=== PATIENT | male | born 2000 | race Hispanic/Latino ===

== ENCOUNTER 2023-03-18 16:13 | Emergency (ER) | payer MEDICAID ==
[~2023-03-18] VITALS: Ht 170.2 cm; Wt 62.1 kg
[2023-03-18 16:37] LABS: BASOPHILS # (AUTO) 0.04 K/uL (0.00-0.20); BASOPHILS % (AUTO) 0.6 % (0.0-5.0); EOSINOPHILS # (AUTO) 0.04 K/uL (0.00-0.70); EOSINOPHILS % (AUTO) 0.6 % (0.0-8.0); HEMATOCRIT 41.4 % (42-54); LYMPHOCYTES # (AUTO) 2.9 K/uL (1.0-4.8); MEAN CORPUSCULAR HEMOGLOBIN 29.9 pg (27.0-33.0); MEAN CORPUSCULAR HGB CONC 33.3 g/dL (32.0-36.0); MEAN CORPUSCULAR VOLUME 89.8 fL (80-100); MONOCYTES # (AUTO) 0.5 K/uL (0.1-1.0); MONOCYTES % (AUTO) 8.2 % (3.0-13.0); NEUTROPHILS # (AUTO) 2.9 K/uL (1.8-7.7); NEUTROPHILS % (AUTO) 45.6 % (40.0-77.0); PLATELET COUNT (AUTO) 187 K/uL (130-400); RED BLOOD CELL COUNT(AUTO) 4.61 MIL/uL (4.50-6.20); RED CELL DISTRIBUTION WIDTH 11.8 % (11.0-15.5); WHITE BLOOD COUNT (AUTO) 6.4 K/uL (4.8-10.8)
[2023-03-18 16:42] LABS: INR 0.98 (0.85-1.15); PROTHROMBIN TIME 11.4 SEC (9.6-11.6)
[2023-03-18 16:43] LABS: POTASSIUM 3.4 mmol/L (3.5-5.1)
[2023-03-18 16:47] LABS: ALBUMIN 4.1 g/dL (3.5-5.0); BILIRUBIN,TOTAL 0.6 mg/dL (0.2-1.0); MAGNESIUM 1.8 mg/dL (1.80-2.40); TOTAL PROTEIN, SERUM 7.9 g/dL (6.0-8.3)
[2023-03-18 22:24] VITALS: BP 109/65; PULSE 69; RESP 16; O2SAT 99
== END 2023-03-18 22:32 | disposition home or self-care (01) ==
LOC: EDH 16:13
DX: F41.9 Anxiety disorder, unspecified (principal); Z88.0 Allergy status to penicillin; Z88.8 Allergy status to other drugs, medicaments and biological substances
CPT/HCPCS: 36415; 70450; 70553; 71045; 80053; 83735; 84484; 85025; 85378; 85610; 93005

== ENCOUNTER 2023-06-28 07:27 | Emergency (ER) | payer MEDICAID ==
[~2023-06-28] VITALS: Ht 175.3 cm; Wt 58.5 kg
[2023-06-28] MEDS ORDERED: ONDANSETRON 4MG INJ IVP ONE (08:30)
[2023-06-28] MEDS ORDERED: MORPHINE 4 MG SYG IVP ONE (08:30)
[2023-06-28] MEDS ORDERED: LACTATED RINGERS 1000ML 1,000 ML IV ONE (08:30)
[2023-06-28 08:37] LABS: BASOPHILS # (AUTO) 0.03 K/uL (0.00-0.20); BASOPHILS % (AUTO) 0.5 % (0.0-5.0); EOSINOPHILS # (AUTO) 0.02 K/uL (0.00-0.70); EOSINOPHILS % (AUTO) 0.3 % (0.0-8.0); HEMATOCRIT 50.7 % (42-54); IMMATURE GRANULOCYTE ABSOLUTE 0.02 K/uL (0-1); LYMPHOCYTES % (AUTO) 48.9 % (21.0-51.0); MEAN CORPUSCULAR HEMOGLOBIN 30.4 pg (27.0-33.0); MEAN CORPUSCULAR HGB CONC 34.5 g/dL (32.0-36.0); MEAN CORPUSCULAR VOLUME 88.2 fL (80-100); MONOCYTES % (AUTO) 15.3 % (3.0-13.0); NEUTROPHILS # (AUTO) 2.2 K/uL (1.8-7.7); NEUTROPHILS % (AUTO) 34.7 % (40.0-77.0); PLATELET COUNT (AUTO) 151 K/uL (130-400); RED BLOOD CELL COUNT(AUTO) 5.75 MIL/uL (4.50-6.20); RED CELL DISTRIBUTION WIDTH 11.9 % (11.0-15.5); WHITE BLOOD COUNT (AUTO) 6.2 K/uL (4.8-10.8)
[2023-06-28 08:46] LABS: POTASSIUM 3.6 mmol/L (3.5-5.1)
[2023-06-28 08:51] LABS: ALBUMIN 4.2 g/dL (3.5-5.0); BILIRUBIN,TOTAL 0.9 mg/dL (0.2-1.0); TOTAL PROTEIN, SERUM 9.2 g/dL (6.0-8.3)
[2023-06-28 09:03] LABS: SARS-CoV-2, RNA, NAAT NEGATIVE SARS CoV-2 (NEGATIVE)
[2023-06-28 09:12] LABS: INFLUENZA TYPE A Negative For Type A (NEGATIVE); INFLUENZA TYPE B Negative For Type B (NEGATIVE)
[2023-06-28 09:47] LABS: BAND NEUTROPHILS % (MANUAL) 5 % (0-2); EOSINOPHILS % (MANUAL) 1 % (1-6); LYMPHOCYTES % (MANUAL) 44 % (22-44); MONOCYTES % (MANUAL) 11 % (2-9); REACTIVE LYMPHOCYTES 10 % (0-0); SEGMENTED NEUTROPHILS % 29 % (40-70); TOTAL CELLS COUNTED 100
[2023-06-28 09:48] LABS: MAN.DIFF COMMENT-IMPRESSION MANUAL DIFFERENTIAL; PLATELET MORPHOLOGY COMMENT ADEQUATE
[2023-06-28] MEDS ORDERED: IBUP-2070 PO (11:55)
[2023-06-28] MEDS ORDERED: ONDA4TAB10 PO (11:55)
[2023-06-28] MEDS ORDERED: ACET-66 PO (11:55)
[2023-06-28 12:23] LABS: APPEARANCE,URINE CLEAR (CLEAR); BILIRUBIN,URINE NEGATIVE (NEGATIVE); COLOR,URINE YELLOW (YELLOW); GLUCOSE, URINE (UA) NEGATIVE (NEGATIVE); KETONES,URINE 20 mg/dL (NEGATIVE); LEUKOCYTE ESTERASE ,URINE NEGATIVE Leu/uL (NEGATIVE); NITRATE,URINE NEGATIVE (NEGATIVE); OCCULT BLOOD,URINE NEGATIVE (NEGATIVE); PROTEIN,URINE 20 mg/dL (NEGATIVE); UROBILINOGEN,URINE 0.2 mg/dL (0.2-1.0)
[2023-06-28 12:26] LABS: ADD UA MICROSCOPIC YES
[2023-06-28 12:32] LABS: MUCUS,URINE FEW LPF (None Seen); SQUAMOUS EPITHELIAL CELL,UR RARE /HPF (0-2)
[2023-06-28 14:08] VITALS: BP 105/62; PULSE 70; RESP 18; O2SAT 100
== END 2023-06-28 14:11 | disposition home or self-care (01) ==
LOC: EDH 07:27
DX: R10.9 Unspecified abdominal pain (principal); R11.2 Nausea with vomiting, unspecified; R19.7 Diarrhea, unspecified; Z88.0 Allergy status to penicillin; Z88.8 Allergy status to other drugs, medicaments and biological substances; Z89.612 Acquired absence of left leg above knee; Z90.49 Acquired absence of other specified parts of digestive tract; Z91.041 Radiographic dye allergy status; Z20.822 Contact with and (suspected) exposure to COVID-19
CPT/HCPCS: 99285; 74176; 96374; 87635; 96361; 96375; 80053; 83690; 85025; 87088; 87804 ×2; 81001; 36415; C9803; J7120; J2405; J2270

== ENCOUNTER 2025-06-03 18:07 | Inpatient (IN) | payer SELFPAY ==
[~2025-06-03] VITALS: Ht 172.7 cm; Wt 67.9 kg
[~2025-06-03 18:07] MED LIST: ACET-66 PO; IBUP-1492 PO; ONDA-243 PO
--- NOTE | 2025-06-03 18:34 | ERN ---
ED Note History of Present Illness Stated Complaint: MULTIPLE COMPLAINT Chief Complaint: Multiple Complaints Time Seen by MD: 18:26 Dictation: PATIENT IS A 25-YEAR-OLD MALE COMING IN TODAY WITH COMPLAINTS OF GOING TO WORK AT 14:40 THIS AFTERNOON WHEN HE HAD A SUDDEN ONSET OF EPIGASTRIC PAIN AND BILATERAL UPPER QUADRANT PAIN CHEST PAIN AND BODY PAIN. HE SAID HE HAD NAUSEA VOMITING X1. HE STATES IT LASTED FOR A LITTLE WHILE THEN WENT AWAY. HE STATES HE WENT HOME TO LAID DOWN TO SEE IF IT WOULD FEEL BETTER. HE DENIES ANY CHRONIC MEDICAL CONDITIONS NO CHEST PAIN NO BACK PAIN. STATES HE DOES NO DRUGS. STATES HE HAS GONE TO THE HOSPITAL IN THE PAST AT [facility] FOR THE SAME COMPLAINTS. Allergies: Coded Allergies: piperacillin (Unverified Allergy, Mild, RASH, 12/09/22) tazobactam (Unverified Allergy, Mild, RASH, 12/09/22) iodine (Unverified Allergy, Unknown, 12/09/22) promethazine (Unverified Allergy, Unknown, 12/09/22) Uncoded Allergies: PLATLETS (Allergy, Unknown, 12/09/22) Home Meds Active Scripts Ibuprofen (Ibuprofen) 600 Mg Tablet, 600 MG PO Q6H PRN for PAIN, #20 TAB Prov:BENNETT BROUSSARD MD 06/28/23 Acetaminophen (Acetaminophen) 500 Mg Tablet, 500 MG PO Q6HPRN PRN for PAIN, #20 TAB Prov:BENNETT BROUSSARD MD 06/28/23 Ondansetron (Ondansetron Odt) 4 Mg Tab.rapdis, 4 MG PO Q6HPRN PRN for nausea, #12 TAB 0 Refills Prov:BENNETT BROUSSARD MD 06/28/23 Past Medical History Past Medical History: Other Additional Past Medical Hx: OSTEOSARCOMA Surgical History: Other Surgical History Other: LEFT LEG CA REMOVAL Social History: Negative, Lives with family RN Note Reviewed/Agreed w/PFSH: Yes Review of System Dictation CONSTITUTIONAL: NEGATIVE EXCEPT FOR HPI GENERALIZED BODY WEAKNESS HEAD/FACE: NEGATIVE EXCEPT FOR HPI EENT: NEGATIVE EXCEPT FOR HPI RESPIRATORY: NEGATIVE EXCEPT FOR HPI GASTROINTESTINAL/ABDOMINAL: NEGATIVE EXCEPT FOR HPI NAUSEA VOMITING WITH DIFFUSE UPPER ABDOMINAL PAIN GENITOURINARY: NEGATIVE EXCEPT FOR HPI MUSCULOSKELETAL: NEGATIVE EXCEPT FOR HPI MALAISE INTEGUMENTARY: NEGATIVE EXCEPT FOR HPI NEUROLOGICAL/PSYCH: NEGATIVE EXCEPT FOR HPI HEMATOLOGIC/LYMPHATIC: NEGATIVE EXCEPT FOR HPI ALL SYSTEMS NEGATIVE, EXCEPT NOTED ABOVE. 13 POINT REVIEW OF SYSTEMS ASSESSED AND ALL NEGATIVE EXCEPT FOR ABOVE. Initial Vital Sign VS Vital Signs Date Time Temp Pulse Resp B/P (MAP) Pulse Ox O2 Delivery O2 Flow Rate FiO2 06/03/25 18:19 97.5 115 18 121/71 98 Room Air 0 Physical Exam Dictation VITAL SIGNS REVIEWED GENERAL APPEARANCE: ALERT, ORIENTED X 3, NO ACUTE DISTRESS, WELL DEVELOPED, NOURISHED. HEAD AND FACE: NON-TRAUMATIC. EYES: PERRL, PINK CONJUNCTIVAS, EYELID NO TRAUMA, ANTERIOR CHAMBER WITH ARCUS SENILIS. EARS: PINNAS INTACT AND NO SIGNS OF TRAUMA OR ERYTHEMA EAR CANALS CLEAR AND NO DISCHARGE TM NO ERYTHEMA NOSE: NO DISCHARGE, NO BLEEDING. OROPHARYNX: MOUTH NORMAL, TONGUE PINK, PHARYNX CLEAR,NO ERYTHEMA, TONSILS NO EXUDATES, NO ABSCESSES NOTED, MUCOUS MEMBRANE MOIST NECK: SUPPLE, NON-TENDER, NO THYROMEGALY, NO MASSES, NO JVD, NO BRUITS BREAST:DEFERRED CHEST:NO TENDERNESS, NO CREPITUS, NO PARADOXICAL MOVEMENT, NO RETRACTIONS LUNGS:CLEAR, WELL-VENTILATED, SYMMETRIC, NO RALES, NO WHEEZING, NO RHONCHI, NO STRIDOR, GOOD BREATH SOUNDS BILATERALLY HEART: REGULAR RATE, REGULAR RHYTHM, NO MURMUR, NO GALLOPS VASCULAR: NO PERIPHERAL EDEMA, ABDOMEN: SOFT, POSITIVE BOWEL SOUNDS, NONDISTENDED, NO GUARDING, NONTENDER, NO REBOUND, NO MASSES NO HEPATOMEGALY, NO SPLENOMEGALY, NO NAPIER'S SIGN, NO HERNIAS. RECTAL: DEFERRED GENITAL: DEFERRED NEUROLOGICAL: NORMAL SPEECH, MOTOR FUNCTION INTACT, SENSORY FUNCTION INTACT MUSCULOSKELETAL: NECK NONTENDER, FULL RANGE OF MOTION, BACK NONTENDER, FULL RANGE OF MOTION, EXTREMITIES: ROTATION PLASTY OF THE LEFT LEG SKIN INTACT NO ERYTHEMA NO BREAKDOWN SKIN: COLOR PINK, DRY, NO TURGOR, NO RASH, NO LACERATIONS, NO ABRASIONS, NO CONTUSIONS. LYMPHATIC: DEFERRED Results (Laboratory/Radiology) Laboratory/Radiology Laboratory Tests Test 06/03/25 18:57 06/03/25 20:38 White Blood Count 16.3 K/uL (4.8-10.8) H Red Blood Count 5.15 MIL/uL (4.50-6.20) Hemoglobin 15.4 g/dL (14.0-18.0) Hematocrit 46.7 % (42-54) Mean Corpuscular Volume 90.7 fL (79-99) Mean Corpuscular Hemoglobin 29.9 pg (27.0-33.0) Mean Corpuscular Hemoglobin Concent 33.0 g/dL (32.0-36.0) Red Cell Distribution Width 12.0 % (11.0-15.5) Platelet Count 224 K/uL (130-400) Mean Platelet Volume 10.9 fL (7.5-10.5) H Immature Granulocyte % (Auto) 0.4 % (0-1) Neutrophils (%) (Auto) 86.4 % (40.0-77.0) H Lymphocytes (%) (Auto) 7.2 % (21.0-51.0) L Monocytes (%) (Auto) 5.6 % (3.0-13.0) Eosinophils (%) (Auto) 0.2 % (0.0-8.0) Basophils (%) (Auto) 0.2 % (0.0-5.0) Neutrophils # (Auto) 14.1 K/uL (1.8-7.7) H Lymphocytes # (Auto) 1.2 K/uL (1.0-4.8) Monocytes # (Auto) 0.9 K/uL (0.1-1.0) Eosinophils # (Auto) 0.04 K/uL (0.00-0.70) Basophils # (Auto) 0.04 K/uL (0.00-0.20) Absolute Immature Granulocyte (auto 0.06 K/uL (0-1) Nucleated Red Blood Cells 0.0 % (0.0-0.19) Sodium Level 137 mmol/L (136-145) Potassium Level 3.9 mmol/L (3.5-5.1) Chloride Level 99 mmol/L (101-111) L Carbon Dioxide Level 30 mmol/L (21-32) Blood Urea Nitrogen 14 mg/dL (7-18) Creatinine 0.7 mg/dL (0.5-1.3) Glomerular Filtration Rate Calc 133 mL/min (>90) Random Glucose 106 mg/dL (70-105) H Lactic Acid Level 1.8 mmol/L (0.8-2.5) Total Calcium 9.0 mg/dL (8.5-10.1) Total Creatine Kinase 84 U/L (21-232) # Troponin I High Sensitivity < 4 ng/L (4-75) L Lipase 102 U/L (16-77) H Urine Color LIGHT-YELLOW (YELLOW) Urine Appearance CLEAR (CLEAR) Urine pH 7.5 (5.0-8.0) Urine Specific [place] 1.024 (1.001-1.031) Urine Protein NEGATIVE mg/dL (NEGATIVE) Urine Glucose (UA) NEGATIVE mg/dL (NEGATIVE) Urine Ketones NEGATIVE mg/dL (NEGATIVE) Urine Occult Blood NEGATIVE (NEGATIVE) Urine Nitrate NEGATIVE (NEGATIVE) Urine Bilirubin NEGATIVE mg/dL (NEGATIVE) Urine Urobilinogen 0.2 mg/dL (0.2-1.0) Urine Leukocyte Esterase NEGATIVE Leila/uL Urine Opiates Screen NEGATIVE (NEGATIVE) Urine Barbiturates Screen NEGATIVE (NEGATIVE) Urine Phencyclidine Screen NEGATIVE (NEGATIVE) Urine Amphetamines Screen NEGATIVE (NEGATIVE) Urine Benzodiazepines Screen NEGATIVE (NEGATIVE) Urine Cocaine Screen NEGATIVE (NEGATIVE) Urine Marijuana (THC) Screen NEGATIVE (NEGATIVE) Labs Reviewed?: Yes EKG Comment: Test Date: 2025-06-03 Test Time: 18:51:26 Pat Name: CRISTAL MACK Department: [facility] Room: 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 ED Course ED Course Orders Procedure Category Date Status Time Drug Screen Urine LAB 06/03/25 Complete 18:32 Cbc With Differential LAB 06/03/25 In Process 18:32 Troponin I High LAB 06/03/25 Complete Sensitivity 18:32 Urinalysis Profile LAB 06/03/25 Complete 18:32 12 Lead Ekg Tracing- EKG 06/03/25 Complete Technical 18:32 Blood Cult KELSEY 06/03/25 Logged 18:57 Lactic Acid LAB 06/03/25 Complete 18:57 Creatine Kinase, Total LAB 06/03/25 Complete 18:57 Basic Metabolic Panel LAB 06/03/25 Complete 18:57 Lipase LAB 06/03/25 Complete 18:57 Chest 1vw RAD 06/03/25 Resulted 19:30 0.9%Nacl 1000ml (Ns PHA 06/03/25 Logged 1000ml) 21:30 Morphine 2mg Syg PHA 06/03/25 Logged (Morphine 2mg Syg) 21:30 Ondansetron 4mg Inj PHA 06/03/25 Logged (Zofran 4mg Inj) 21:30 Edm Admit Bridge Order ADM 06/03/25 Verified 21:28 Current Medications Medications (Trade) Dose Ordered Sig/[place] Route PRN Reason Start Time Stop Time Status Last Admin Dose Admin Morphine Sulfate (morPHINE 2MG SYG) 2 mg ONCE ONCE IVP 06/03/25 21:30 06/03/25 21:31 UNV Ondansetron HCl (zoFRAN 4MG INJ) 4 mg ONCE ONCE IVP 06/03/25 21:30 06/03/25 21:31 UNV Sodium Chloride 1,000 ml @ 0 mls/hr ONCE ONCE IV 06/03/25 21:30 06/03/25 21:31 UNV Vital Signs Date Time Temp Pulse Resp B/P (MAP) Pulse Ox O2 Delivery O2 Flow Rate FiO2 06/03/25 18:19 97.5 115 18 121/71 98 Room Air 0 2130 REPORT GIVEN TO [facility] HOSPITALIST REGARDING TACHYCARDIA LEUKOCYTOSIS AND ELEVATED LIPASE. HE IS AWARE PATIENT HAS A HISTORY OF OSTEOSARCOMA AND SEPSIS. 1 L NORMAL SALINE AND MORPHINE GIVEN FOR GENERALIZED PAIN HEART Score Response (Comments) Value History: Low suspicion (0) 0 EKG: Normal 0 Age: < 45yrs (0) 0 Risk Factors: No known risk factors (0) 0 Initial Troponin: Normal limit (0) 0 Total 0 Medical Decision Making MDM MDM: DIFFERENTIAL DIAGNOSIS: ACS/AMI/ELECTROLYTE IMBALANCE/DEHYDRATION/SEPSIS/DRUG ABUSE/ANXIETY/PNEUMONIA/BRONCHITIS/SEPSIS RATIONALE: TESTS CONSIDERED AND ORDERED SECONDARY TO SHARED DECISION MAKING INCLUDE: LABS, ECG AND RADIOLOGY PREVIOUS OUTSIDE RECORDS REVIEWED: OLD ER VISITS. RISK OF COMPLICATION AND/OR MORBIDITY OR MORTALITY OF PATIENT MANAGEMENT: NONE MEDICATIONS-PER MEDICATION RECONCILIATION NEED FOR HOSPITALIZATION: PATIENT DOES MEET CRITERIA FOR HOSPITALIZATION. PATIENT WILL BE ADMITTED FOR LEUKOCYTOSIS/TACHYCARDIA PAIN MANAGEMENT AND FURTHER WORKUP NEED FOR EMERGENCY MAJOR/MINOR SURGERY: NO THERE ARE NO SOCIAL CONCERNS WITH THIS PATIENT NO PRIMARY CARE DOCTOR PRESCRIPTION DRUG MANAGEMENT PRESCRIPTIONS WILL INCLUDE SYMPTOMATIC CARE PATIENT'S PRIOR EXTERNAL MEDICAL RECORDS FROM OTHER ER VISITS WERE REVIEWED BY ME INDICATED. PRIOR TESTING AND RESULTS FROM PREVIOUS VISITS WERE REVIEWED. PRIOR TESTS WERE TAKEN INTO ACCOUNT WITH MEDICAL DECISION MAKING AND RESOURCE UTILIZATION, INDEPENDENT HISTORIAN/HISTORIANS WERE USED TO OBTAIN COMPLETE MEDICAL HISTORY. I INDEPENDENTLY INTERPRETED THE TEST THAT WERE PERFORMED, RESULTS WERE REVIEWED BY ME AND CONSIDERED FINDINGS ON RADIOLOGY IF ORDERED. MEDICAL MANAGEMENT AND EXAMINATION INTERPRETATION DISCUSSIONS WERE HAD BY ME WITH OTHER QUALIFIED HEALTHCARE PROFESSIONALS INDICATED FOR THE PATIENT'S CARE. DX & DISP Disposition: Inpatient Decision to Admit Time: 21:31 Departure Impression: Primary Impression: Leukocytosis Additional Impressions: Elevated lipase, Tachycardia, History of osteosarcoma Condition: Stable Referrals: NELI MCCORMICK MD (PCP) Time of Disposition: 21:31 I have reviewed the case, and I agree with, Diagnosis and Plan TAVO MYRICK BIBLIOGRAPHIC SERVICES SPECIALIST Jun 03, 2025 18:34
--- NOTE | 2025-06-03 18:53 | EKG ---
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
[2025-06-03 19:21] LABS: IMMATURE GRANULOCYTE ABSOLUTE 0.06 K/uL (0-1); NUCLEATED RED BLOOD CELLS 0.0 % (0.0-0.19); PLATELET COUNT (AUTO) 224 K/uL (130-400); RED BLOOD CELL COUNT(AUTO) 5.15 MIL/uL (4.50-6.20); RED CELL DISTRIBUTION WIDTH 12.0 % (11.0-15.5); WHITE BLOOD COUNT (AUTO) 16.3 K/uL (4.8-10.8)
[2025-06-03 19:33] LABS: CREATININE 0.7 mg/dL (0.5-1.3); GLOMERULAR FILTR. RATE CALC 133.0 mL/min (>90); GLUCOSE,RANDOM 106.0 mg/dL (70-105); SODIUM SERUM 137.0 mmol/L (136-145); UREA NITROGEN, BLOOD 14.0 mg/dL (7-18)
[2025-06-03 19:38] LABS: CREATINE KINASE, TOTAL 84.0 U/L (21-232)
--- NOTE | 2025-06-03 20:20 | HMCIMG ---
EXAM: CR Chest, 1 View. CLINICAL HISTORY: SOB/COUGH COMPARISON: None provided. FINDINGS: LUNGS: The lungs show no infiltrate or other acute finding. PLEURAL SPACES: No evidence of pleural effusion or pneumothorax. MEDIASTINUM: Cardiac size and mediastinal contours within normal limits. BONES: No aggressive appearing osseous lesion seen. IMPRESSION: No acute cardiopulmonary pathology is evident. /[place]
[2025-06-03 20:55] LABS: APPEARANCE,URINE CLEAR (CLEAR); GLUCOSE, URINE (UA) NEGATIVE (NEGATIVE); LEUKOCYTE ESTERASE ,URINE NEGATIVE Leu/uL (NEGATIVE); NITRATE,URINE NEGATIVE (NEGATIVE); OCCULT BLOOD,URINE NEGATIVE (NEGATIVE)
[2025-06-03 20:59] LABS: ADD UA MICROSCOPIC NO
[2025-06-03 21:14] LABS: AMPHET/METH SCREEN,URINE NEGATIVE (NEGATIVE); BARBITURATE SCREEN, URINE NEGATIVE (NEGATIVE); CANNABINOID SCREEN,URINE NEGATIVE (NEGATIVE); COCAINE SCREEN,URINE NEGATIVE (NEGATIVE)
[2025-06-03] MEDS: 0.9%NACL 1000ML 1,000 ML IV ONE (22:01)
--- NOTE | 2025-06-03 22:21 | HP ---
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 Seen and examined patient in the ER awake alert and coherent, appears uncomfortable. Patient denies chest pain, palpitation, cough and shortness for breath. Latest vital signs temperature 100.8, heart rate 120, blood pressure 100/57 saturation 100%. Labs WBC 16 with negative left shift of neutrophils 86, hemoglobin 15, hematocrit 46, platelet count 224. Chloride 99, glucose 106, troponin less than four lipase 102. Urine toxicology negative. Urinalysis is normal. Chest x-ray result revealed no acute cardiopulmonary pathology. CT abdomen and pelvis without contrast result revealed no acute intra-abdominal or pelvic abnormality. Nonobstructive left renal calculus. Hepatomegaly with features of diffuse hepatic steatosis. Cystitis. While in the ER patient received 1 L NS bolus, morphine 2 mg IV, Zofran 4 mg IV and Tylenol 1000 mg p.o. we will admit patient for further medical management. REVIEW OF SYSTEMS CONSTITUTIONAL: Positive fever and chills Denies night sweats. No unintentional weight loss reported. NEUROLOGICAL: Denies headache, amaurosis fugax, motor weakness, sensory deficit, vertigo/spinning sensation, gait abnormalities, or tremors. ENT: No hearing loss, otalgia, otorrhea, rhinitis, rhinorrhea, hoarseness, or sore throat. CARDIOVASCULAR: Denies any exertional angina, dyspnea on exertion, orthopnea, paroxysmal nocturnal dyspnea, palpitations, life-threatening arrhythmias, claudication. PULMONARY: Denies any shortness of breath, cough, phlegm/sputum, hemoptysis, pleuritic chest pain. SLEEP: Denies morning headaches, daytime somnolence or napping. Denies difficulty falling asleep, staying asleep, waking from sleep. Denies knowledge of snoring. GASTROINTESTINAL: Complain of abdominal pain nausea Denies any type of dys phagia to either liquids or solids. Denies vomiting, pyrosis, early satiety, diarrhea, constipation, or changes in stool consistency or caliber. Denies coffee-ground emesis, hematemesis, hematochezia, or melanotic stools. GENITOURINARY: Denies frequency, urgency, nocturia, hematuria or incontinence (Storage/Irritative symptoms.) Low urinary stream, straining to void, urinary intermittency or hesitancy, splitting of the voiding stream, terminal dribbling. ENDOCRINOLOGIC: Denies polyuria, polydipsia, polyphagia or heat/cold intolerances. HEMATOLOGIC: Denies thrombophilia/previous clots, or coagulopathy/bleeding disorders. ONCOLOGIC: Denies personal history of malignancy. DERMATOLOGIC: Denies rashes or pruritus. PSYCHIATRIC: Denies any suicidal or homicidal ideation. Denies hallucinations. PAST MEDICAL HISTORY: [Osteosarcoma ] PAST SURGICAL HISTORY: [ Left leg rotation plasty ] PAST SOCIAL HISTORY: [Patient lives with significant other. Patient denies cigarette and recreational drug use admits to drinking four beers per month ] FAMILY HISTORY: [Diabetes and cardiovascular disease ] Coded Allergies: piperacillin (Unverified Allergy, Mild, RASH, 12/09/22) tazobactam (Unverified Allergy, Mild, RASH, 12/09/22) iodine (Unverified Allergy, Unknown, 12/09/22) promethazine (Unverified Allergy, Unknown, 12/09/22) Uncoded Allergies: PLATLETS (Allergy, Unknown, 12/09/22) PHYSICAL EXAM GENERAL APPEARANCE: The patient is awake, alert, and oriented, in no acute cardiopulmonary distress. NEUROLOGICAL: Cranial nerves II-XII grossly intact. Motor is 5/5 in bilateral upper and lower extremities proximal to distal. No sensory deficits. HEENT: Face is symmetric. Pupils are equal and reactive. Extraocular movements are intact. NECK: Supple. No JVD. No thyromegaly. No submental, submandibular, pre- /postauricular, occipital or supraclavicular lymphadenopathy. CHEST: Normal chest expansion. No Telemetry. LUNGS: Absence of any rales, rhonchi or any wheezing. CARDIOVASCULAR: Regular. S1 and S2 normal. No appreciable rubs, murmurs or gallops. ABDOMEN: Soft, nontender, and nondistended. There is no rebound, voluntary guarding, or rigidity. : Deferred. No [place]. EXTREMITIES: Non-edematous and not cyanotic. No clubbing. Good capillary refill. SKIN: No skin breakdown. Vital Sign (Last 24 Hours) 06/03/25 06/03/25 22:00 22:06 Temp 100.8 Pulse 125 Resp 20 B/P (MAP) 97/49 Pulse Ox 99 O2 Delivery Room Air* O2 Flow Rate 0 FiO2 21 LABS: Laboratory: Test 06/03/25 20:38 06/03/25 18:57 Range/Units Urine Color LIGHT-YELLOW YELLOW Urine Appearance CLEAR CLEAR Urine pH 7.5 5.0-8.0 Urine Specific [place] 1.024 1.001-1.031 Urine Protein NEGATIVE NEGATIVE mg/dL Urine Glucose (UA) NEGATIVE NEGATIVE mg/dL Urine Ketones NEGATIVE NEGATIVE mg/dL Urine Occult Blood NEGATIVE NEGATIVE Urine Nitrate NEGATIVE NEGATIVE Urine Bilirubin NEGATIVE NEGATIVE mg/dL Urine Urobilinogen 0.2 0.2-1.0 mg/dL Urine Leukocyte Esterase NEGATIVE NEGATIVE Leila/uL Urine Opiates Screen NEGATIVE NEGATIVE Urine Barbiturates Screen NEGATIVE NEGATIVE Urine Phencyclidine Screen NEGATIVE NEGATIVE Urine Amphetamines Screen NEGATIVE NEGATIVE Urine Benzodiazepines Screen NEGATIVE NEGATIVE Urine Cocaine Screen NEGATIVE NEGATIVE Urine Marijuana (THC) Screen NEGATIVE NEGATIVE White Blood Count 16.3 H 4.8-10.8 K/uL Red Blood Count 5.15 4.50-6.20 MIL/uL Hemoglobin 15.4 14.0-18.0 g/dL Hematocrit 46.7 42-54 % Mean Corpuscular Volume 90.7 79-99 fL Mean Corpuscular Hemoglobin 29.9 27.0-33.0 pg Mean Corpuscular Hemoglobin Concent 33.0 32.0-36.0 g/dL Red Cell Distribution Width 12.0 11.0-15.5 % Platelet Count 224 130-400 K/uL Mean Platelet Volume 10.9 H 7.5-10.5 fL Immature Granulocyte % (Auto) 0.4 0-1 % Neutrophils (%) (Auto) 86.4 H 40.0-77.0 % Lymphocytes (%) (Auto) 7.2 L 21.0-51.0 % Monocytes (%) (Auto) 5.6 3.0-13.0 % Eosinophils (%) (Auto) 0.2 0.0-8.0 % Basophils (%) (Auto) 0.2 0.0-5.0 % Neutrophils # (Auto) 14.1 H 1.8-7.7 K/uL Lymphocytes # (Auto) 1.2 1.0-4.8 K/uL Monocytes # (Auto) 0.9 0.1-1.0 K/uL Eosinophils # (Auto) 0.04 0.00-0.70 K/uL Basophils # (Auto) 0.04 0.00-0.20 K/uL Absolute Immature Granulocyte (auto 0.06 0-1 K/uL Nucleated Red Blood Cells 0.0 0.0-0.19 % Sodium Level 137 136-145 mmol/L Potassium Level 3.9 3.5-5.1 mmol/L Chloride Level 99 L 101-111 mmol/L Carbon Dioxide Level 30 21-32 mmol/L Blood Urea Nitrogen 14 7-18 mg/dL Creatinine 0.7 0.5-1.3 mg/dL Glomerular Filtration Rate Calc 133 >90 mL/min Random Glucose 106 H 70-105 mg/dL Lactic Acid Level 1.8 0.8-2.5 mmol/L Total Calcium 9.0 8.5-10.1 mg/dL Total Creatine Kinase 84 # 21-232 U/L Troponin I High Sensitivity < 4 L 4-75 ng/L Lipase 102 H 16-77 U/L DIAGNOSTICS / RADIOLOGY: [ ] ASSESSMENT: Sirs with organ dysfunction POA Acute leukocytosis POA Elevated lipase POA Nonobstructive left renal calculus per CT POA Hepatic steatosis POA Acute cystitis POA PLAN: We will admit patient in medical surgical We will start on clear liquid diet and advanced as tolerated We will start NS @ 100 ml / hr x2 bags and re evaluate We will start on cefepime 1 g IV Q 8 hours for empiric coverage We will start on Protonix 40 mg IV daily for GI prophylaxis We will replace electrolytes as needed per protocol We will add prn medication for fever,pain,cough , nausea and vomiting Seek Infectious Disease consultation Follow-up blood culture result We will request labs in am Further orders to follow depending on above results Case discussed with attending physician and came up with above treatment and plan of care. ADVANCED CARE PLANNING 1. Which of the following were discussed? Hospice Care - No Therapeutic options - Yes Advance Directives - No Other discussions - 2. Discussed with who? Patient 3. Voluntary nature of this service was explained to the patient? Yes 4. Amount of time spent - 22 min__ 5. Reviewed by Physician? (if this service was performed by NPP) Yes Patient seen and examined by me. Agree with note by ACTUARIAL TRAINEE SEE ADDITIONAL ORDERS PER CHART DISCUSSED WITH NURSING STAFF DALIA CHICAS LOCK UP WORKER Jun 03, 2025 22:21
[2025-06-03] MEDS: 0.9%NACL 1000ML 1,000 ML IV SCH (22:47)
[2025-06-03 23:01] VITALS: TEMP 100.5
--- NOTE | 2025-06-03 23:42 | HMCIMG ---
EXAM: CT Abdomen and Pelvis Without IV contrast CLINICAL HISTORY: Abdominal pain TECHNIQUE: Axial computed tomography images of the abdomen and pelvis without intravenous contrast. COMPARISON: None provided. FINDINGS: LUNG BASES: The lung bases appear clear. No pleural effusions are seen. LIVER: Enlarged in size, measuring 18.5 cm, with features of diffuse hepatic steatosis. GALLBLADDER AND BILE DUCTS: The gallbladder appears within normal limits. No radioopaque gallstones are seen. No biliary ductal dilatation is evident. PANCREAS: Unremarkable. SPLEEN: Unremarkable. ADRENAL GLANDS: Unremarkable. KIDNEYS, URETERS, AND BLADDER: There is no hydronephrosis or hydroureter. 2.6 mm calculus in the lower calyx of the left kidney. Diffuse thickening of the urinary bladder wall measuring 5-6 mm. STOMACH AND BOWEL: Unremarkable appearance of the stomach and bowel. No evidence of bowel obstruction. No evidence suggesting enteritis or colitis. APPENDIX: Post appendicectomy status. PERITONEUM: No free fluid. No free air. LYMPH NODES: Multiple subcentimeter mesenteric lymph nodes. REPRODUCTIVE: Unremarkable as visualized. VASCULATURE: No evidence of abdominal aortic aneurysm. BONES: No aggressive appearing osseous lesion. No acute osseous pathology evident. Mild to moderate atrophy of the muscles in the left gluteal region, and the visualized extent of the left proximal thigh. IMPRESSION: No acute intra-abdominal or pelvic abnormality. Nonobstructive left renal calculus. Hepatomegaly with features of diffuse hepatic steatosis. Cystitis. /[place]
[2025-06-04] VITALS (8 sets, daily range): BP systolic 95–111; BP diastolic 42–62; PULSE 70–124; RESP 16–20; TEMP 97.5–101.5; O2SAT 98–100
[2025-06-04 06:10] LABS: IMMATURE GRANULOCYTE ABSOLUTE 0.08 K/uL (0-1); NUCLEATED RED BLOOD CELLS 0.0 % (0.0-0.19); PLATELET COUNT (AUTO) 192 K/uL (130-400); RED BLOOD CELL COUNT(AUTO) 4.65 MIL/uL (4.50-6.20); RED CELL DISTRIBUTION WIDTH 12.3 % (11.0-15.5); WHITE BLOOD COUNT (AUTO) 13.5 K/uL (4.8-10.8)
[2025-06-04 06:19] LABS: ERYTHROCYTE SEDIMENTATION RATE 5 MM/HR (0-15)
[2025-06-04 06:23] LABS: ASPARTATE AMINOTRANSFERASE 39.0 U/L (10-37); CREATININE 0.7 mg/dL (0.5-1.3); GLOMERULAR FILTR. RATE CALC 133.0 mL/min (>90); GLUCOSE,RANDOM 114.0 mg/dL (70-105); SODIUM SERUM 135.0 mmol/L (136-145); TOTAL PROTEIN, SERUM 6.6 g/dL (6.0-8.3); UREA NITROGEN, BLOOD 8.0 mg/dL (7-18)
--- NOTE | 2025-06-04 09:31 | NUR ---
DCP:HOME Pt currently lives at home with his mother Mary Villegas [phone]. Pt denies having any DME, home health, or provider services. Pt states that he is able to complete ADLs independently. PCP is Dr Dougie Brooks and use [facility] for any RX needs. At DC pt will want to go home and family can assist with transportation.
[2025-06-04] MEDS ORDERED: MAGNESIUM 2GM PREMIX 50ML 50 ML IV SCH ×2 (10:30→13:30)
--- NOTE | 2025-06-04 12:58 | PN ---
[facility] PROGRESS NOTE Date of Service: Jun 04, 2025 Time of Service: 12:47 SUBJECTIVE: [The patient is a 25-year-old male with a history of osteosarcoma of the left leg, status post rotationplasty, who presented to the ED last night with complaints of abdominal pain primarily in the epigastric region, which began earlier in the day. He describes the pain as diffuse and associated with mild shortness of breath, chills, and nausea, but denies vomiting. He reports having experienced similar abdominal discomfort in the past, but notes that todays pain is more generalized and severe. He also endorses fever and body aches. He denies chest pain, palpitations, cough, or true shortness of breath. No dysuria, hematuria, or urinary frequency. No recent changes in bowel habits, vomiting, or GI bleeding. No headache, dizziness, or focal neurological symptoms at the time of presentation. Since admission, the patient reports that his abdominal pain and nausea have improved with supportive care and medications. He is currently afebrile but now complains of a mild headache. He denies any new symptoms, including chest pain, dyspnea, palpitations, dysuria, hematuria, or rashes. He continues to deny any visual changes, weakness, or sensory deficits. No new GI or urinary complaints. He is tolerating clear liquids. ] REVIEW OF SYSTEMS CONSTITUTIONAL: Positive fever and chills Denies night sweats. No unintentional weight loss reported. NEUROLOGICAL: Denies headache, amaurosis fugax, motor weakness, sensory deficit, vertigo/spinning sensation, gait abnormalities, or tremors. ENT: No hearing loss, otalgia, otorrhea, rhinitis, rhinorrhea, hoarseness, or sore throat. CARDIOVASCULAR: Denies any exertional angina, dyspnea on exertion, orthopnea, paroxysmal nocturnal dyspnea, palpitations, life-threatening arrhythmias, claudication. PULMONARY: Denies any shortness of breath, cough, phlegm/sputum, hemoptysis, pleuritic chest pain. SLEEP: Denies morning headaches, daytime somnolence or napping. Denies difficulty falling asleep, staying asleep, waking from sleep. Denies knowledge of snoring. GASTROINTESTINAL: Complain of abdominal pain nausea Denies any type of dysphagia to either liquids or solids. Denies vomiting, pyrosis, early satiety, diarrhea, constipation, or changes in stool consistency or caliber. Denies coffee-ground emesis, hematemesis, hematochezia, or melanotic stools. GENITOURINARY: Denies frequency, urgency, nocturia, hematuria or incontinence (Storage/Irritative symptoms.) Low urinary stream, straining to void, urinary intermittency or hesitancy, splitting of the voiding stream, terminal dribbling. ENDOCRINOLOGIC: Denies polyuria, polydipsia, polyphagia or heat/cold intolerances. HEMATOLOGIC: Denies thrombophilia/previous clots, or coagulopathy/bleeding disorders. ONCOLOGIC: Denies personal history of malignancy. DERMATOLOGIC: Denies rashes or pruritus. PSYCHIATRIC: Denies any suicidal or homicidal ideation. Denies hallucinations. PHYSICAL EXAM GENERAL APPEARANCE: The patient is awake, alert, and oriented, in no acute cardiopulmonary distress. NEUROLOGICAL: Cranial nerves II-XII grossly intact. Motor is 5/5 in bilateral upper and lower extremities proximal to distal. No sensory deficits. HEENT: Face is symmetric. Pupils are equal and reactive. Extraocular movements are intact. NECK: Supple. No JVD. No thyromegaly. No submental, submandibular, pre- /postauricular, occipital or supraclavicular lymphadenopathy. CHEST: Normal chest expansion. No Telemetry. LUNGS: Absence of any rales, rhonchi or any wheezing. CARDIOVASCULAR: Regular. S1 and S2 normal. No appreciable rubs, murmurs or gallops. ABDOMEN: Soft, nontender, and nondistended. There is no rebound, voluntary guarding, or rigidity. : Deferred. No [place]. EXTREMITIES: Non-edematous and not cyanotic. No clubbing. Good capillary refill. SKIN: No skin breakdown. Vital Signs (last 8hr) Date Time Temp Pulse Resp B/P (MAP) Pulse Ox O2 Delivery O2 Flow Rate FiO2 06/04/25 12:00 98.1 93 19 108/62 97 Room Air 06/04/25 08:00 98.6 111 18 101/57 97 Room Air LABS: Laboratory: Test 06/04/25 05:59 06/03/25 20:38 06/03/25 18:57 Range/Units White Blood Count 13.5 H 4.8-10.8 K/uL Red Blood Count 4.65 4.50-6.20 MIL/uL Hemoglobin 13.9 L 14.0-18.0 g/dL Hematocrit 41.7 L 42-54 % Mean Corpuscular Volume 89.7 79-99 fL Mean Corpuscular Hemoglobin 29.9 27.0-33.0 pg Mean Corpuscular Hemoglobin Concent 33.3 32.0-36.0 g/dL Red Cell Distribution Width 12.3 11.0-15.5 % Platelet Count 192 130-400 K/uL Mean Platelet Volume 10.3 7.5-10.5 fL Immature Granulocyte % (Auto) 0.6 0-1 % Neutrophils (%) (Auto) 80.2 H 40.0-77.0 % Lymphocytes (%) (Auto) 11.1 L 21.0-51.0 % Monocytes (%) (Auto) 7.9 3.0-13.0 % Eosinophils (%) (Auto) 0.1 0.0-8.0 % Basophils (%) (Auto) 0.1 0.0-5.0 % Neutrophils # (Auto) 10.8 H 1.8-7.7 K/uL Lymphocytes # (Auto) 1.5 1.0-4.8 K/uL Monocytes # (Auto) 1.1 H 0.1-1.0 K/uL Eosinophils # (Auto) 0.01 0.00-0.70 K/uL Basophils # (Auto) 0.02 0.00-0.20 K/uL Absolute Immature Granulocyte (auto 0.08 0-1 K/uL Nucleated Red Blood Cells 0.0 0.0-0.19 % Erythrocyte Sedimentation Rate 5 0-15 MM/HR Sodium Level 135 L 136-145 mmol/L Potassium Level 3.7 3.5-5.1 mmol/L Chloride Level 99 L 101-111 mmol/L Carbon Dioxide Level 30 21-32 mmol/L Blood Urea Nitrogen 8 7-18 mg/dL Creatinine 0.7 0.5-1.3 mg/dL Glomerular Filtration Rate Calc 133 >90 mL/min Random Glucose 114 H 70-105 mg/dL Lactic Acid Level 1.3 0.8-2.5 mmol/L Total Calcium 7.6 L 8.5-10.1 mg/dL Magnesium Level 1.50 L 1.80-2.40 mg/dL Total Bilirubin 1.1 H 0.2-1.0 mg/dL Aspartate Amino Transf (AST/SGOT) 39 H 10-37 U/L Alanine Aminotransferase (ALT/SGPT) 53 12-78 U/L Alkaline Phosphatase 93 50-136 U/L Total Protein 6.6 6.0-8.3 g/dL Albumin 3.3 L 3.5-5.0 g/dL Lipase 62 16-77 U/L Urine Color LIGHT-YELLOW YELLOW Urine Appearance CLEAR CLEAR Urine pH 7.5 5.0-8.0 Urine Specific [place] 1.024 1.001-1.031 Urine Protein NEGATIVE NEGATIVE mg/dL Urine Glucose (UA) NEGATIVE NEGATIVE mg/dL Urine Ketones NEGATIVE NEGATIVE mg/dL Urine Occult Blood NEGATIVE NEGATIVE Urine Nitrate NEGATIVE NEGATIVE Urine Bilirubin NEGATIVE NEGATIVE mg/dL Urine Urobilinogen 0.2 0.2-1.0 mg/dL Urine Leukocyte Esterase NEGATIVE NEGATIVE Leila/uL Urine Opiates Screen NEGATIVE NEGATIVE Urine Barbiturates Screen NEGATIVE NEGATIVE Urine Phencyclidine Screen NEGATIVE NEGATIVE Urine Amphetamines Screen NEGATIVE NEGATIVE Urine Benzodiazepines Screen NEGATIVE NEGATIVE Urine Cocaine Screen NEGATIVE NEGATIVE Urine Marijuana (THC) Screen NEGATIVE NEGATIVE White Cell Morphology Comment See comments Total Creatine Kinase 84 # 21-232 U/L Troponin I High Sensitivity < 4 L 4-75 ng/L Current Medications Medications (Trade) Dose Ordered Sig/[place] Route PRN Reason Start Time Stop Time Status Last Admin Dose Admin Acetaminophen (TYLenol 325MG TAB) 650 mg Q4H PRN PO MILD PAIN (1-3) 06/03/25 22:30 07/03/25 22:29 Acetaminophen (TYLenol 325MG TAB) 650 mg Q6H PRN PO TEMPERATURE GREATER THAN 101.5 06/03/25 22:30 07/03/25 22:29 Cefepime HCl (MAXipime 1 GM vial) 1 gm Q8H IVPB 06/03/25 22:30 06/13/25 22:29 06/04/25 06:20 1 GM Magnesium Sulfate 50 ml @ 0 mls/hr PROTOCOL IV 06/04/25 10:30 07/04/25 10:29 Ondansetron HCl (zoFRAN 4MG INJ) 4 mg Q6H PRN IV NAUSEA/VOMITING 06/03/25 22:30 07/03/25 22:29 Pantoprazole Sodium (PROTonix 40MG INJ) 40 mg DAILY IVP 06/04/25 09:00 07/04/25 08:59 06/04/25 09:38 40 MG Sodium Chloride 1,000 ml @ 100 mls/hr Q10H IV 06/03/25 22:30 07/03/25 22:29 06/04/25 09:41 100 MLS/HR DIAGNOSTICS / RADIOLOGY: [ ] ASSESSMENT: Sepsis/SIRS with suspected urinary source (cystitis), POA Fever, tachycardia, leukocytosis, hypotension, and CT evidence of cystitis. Acute cystitis CT findings consistent with cystitis; currently on empiric IV antibiotics. Leukocytosis WBC 16.3 K/uL, neutrophil predominant. Mildly elevated lipase Lipase 102 U/L (asymptomatic, no imaging evidence of pancreatitis). Nonobstructive left renal calculus Incidental finding on CT, no current obstruction or symptoms. Hepatic steatosis Incidental finding on CT, no acute management required. Headache New symptom since admission, currently mild. PLAN: 1. Sepsis/SIRS with suspected urinary source (cystitis) Continue empiric IV antibiotics: Cefepime 1g IV q8h Monitor for clinical response and adjust antibiotics per culture and sensitivity results Infectious Disease consult for further recommendations Monitor vital signs closely for hemodynamic stability Monitor for signs of clinical deterioration or organ dysfunction We will follow Culture results 2. Acute cystitis Continue IV antibiotics as above Monitor for urinary symptoms or changes in urinalysis Encourage oral hydration as tolerated 3. Leukocytosis Monitor CBC daily Trend WBC in response to therapy 4. Mildly elevated lipase Monitor for development of abdominal pain or signs of pancreatitis No specific intervention at this time; repeat lipase if clinically indicated 5. Nonobstructive left renal calculus No acute intervention required Monitor for development of renal colic, hematuria, or urinary obstruction 6. Hepatic steatosis No acute intervention required Telegraph Inspector on lifestyle modification as appropriate after acute issues resolved 7. Headache Monitor symptom progression Provide PRN analgesia Reassess for new or worsening neurological symptoms 8. Supportive Care Continue IV fluids: NS at 100 mL/hr x2 bags, then reassess GI prophylaxis: Protonix 40 mg IV daily PRN medications for fever, pain, nausea, vomiting, and cough Advance diet as tolerated (currently on clear liquids) Replace electrolytes as needed per protocol 9. Monitoring Daily labs: CBC, BMP, LFTs, as indicated Monitor blood cultures and other relevant microbiology results Reassess clinical status at least daily 10. Patient Education and Advanced Care Planning Continue to discuss therapeutic options and goals of care as appropriate Case discussed with Dr. Ivy, above plan was formulated ATTESTATION BY PHYSICIAN I have seen and examined the patient. I reviewed the documentation, medical decision making, and treatment plan as noted by the mid-level provider above. I agree with the findings and plan of care. JERSON IVY MD, JANICE B [facility] Jun 04, 2025 12:58
[2025-06-04] MEDS ORDERED: VANCOMYCIN PROTOCOL PER PHARMACY IV SCH (14:00)
[2025-06-04] MEDS: VANCOMYCIN 1.5 GM/250 ML BAG 250 ML IV ONE (16:17)
[2025-06-04] MEDS ORDERED: COMPOUND IV REFRIGERATED 1 EACH IVSOLN MISC PRN (16:30)
[2025-06-04] MEDS ORDERED: COMPOUND IV MISC 1 EACH IVSOLN MISC PRN (16:30)
--- NOTE | 2025-06-04 17:25 | NUR ---
PATIENT BEGAN WITH REDNESS AND ITCHINESS TO THE FACE AND CHEST WHILE RECEIVING VANCOMYCIN. IMMEDIATELY STOPPED INFUSION, NOTIFIED DR. IVY. ORDERS RECEIVED
[2025-06-04] MEDS ORDERED: DOXYCYCLINE 100MG+NS 250ML 250 ML IV SCH (17:30)
[2025-06-04] MEDS: ZYVOX 600 MG TAB PO SCH (18:13)
[2025-06-04] MEDS ORDERED: PoTASSium chl 10% ELIXIR 20MEQ 20 MEQ/15 ML UDCUP PO PRN (19:00)
[2025-06-04] MEDS ORDERED: PoTASSium chloRIDE 20MEQ ER 20 MEQ ERTAB PO PRN (19:00)
[2025-06-04] MEDS ORDERED: VANCOMYCIN 1.25 GM/250 ML BAG 250 ML IV SCH (23:00)
[2025-06-05] VITALS (7 sets, daily range): BP systolic 92–109; BP diastolic 54–64; PULSE 68–86; RESP 16–18; TEMP 97.6–98; O2SAT 98
[2025-06-05 06:09] LABS: NUCLEATED RED BLOOD CELLS 0.0 % (0.0-0.19); PLATELET COUNT (AUTO) 215.0 K/uL (130-400); RED BLOOD CELL COUNT(AUTO) 4.6 MIL/uL (4.50-6.20); RED CELL DISTRIBUTION WIDTH 11.9 % (11.0-15.5); WHITE BLOOD COUNT (AUTO) 11.2 K/uL (4.8-10.8)
[2025-06-05 06:30] LABS: ASPARTATE AMINOTRANSFERASE 59.0 U/L (10-37); CREATININE 0.7 mg/dL (0.5-1.3); GLOMERULAR FILTR. RATE CALC 133.0 mL/min (>90); GLUCOSE,RANDOM 122.0 mg/dL (70-105); SODIUM SERUM 136.0 mmol/L (136-145); TOTAL PROTEIN, SERUM 7.0 g/dL (6.0-8.3); UREA NITROGEN, BLOOD 9.0 mg/dL (7-18)
--- NOTE | 2025-06-05 07:12 | PN ---
INFECTIOUS DISEASE FOLLOWUP NOTE DATE OF SERVICE: 06/04/2025 SUBJECTIVE: The patient is seen and examined at bedside today. He has some intermittent fever. No cough. No shortness of breath. No palpitations or orthopnea. The patient complains of generalized body aches, which is improving. No rashes or itchiness. No dysuria or hematuria. PHYSICAL EXAMINATION: VITAL SIGNS: Temperature 99.5. EYES: No icterus. Pupils equal and reactive. HENT: No oral thrush seen. Moist oral mucosa. NECK: Supple. No JVD or thyromegaly. LUNGS: Good air entry. No rales. No rhonchi. CARDIOVASCULAR: S1 and S2, regular. No murmur heard. ABDOMEN: Full. Soft, nontender. Bowel sound is present. CENTRAL NERVOUS SYSTEM: Awake, alert, oriented x 3. No focal deficits. SKIN: No rashes, no itchiness. LYMPHATIC: No peripheral lymphadenopathy. of left leg and leg cellulitis. ASSESSMENT: A 25-year-old male with fever, chills, weakness, and body aches. CURRENT PROBLEMS: Include: 1. Sepsis. 2. Cellulitis. 3. Left lower exremity deformity. 1. PLAN: 2. Continue cefepime. 3. Start the patient on linezolid. 4. Followup cultures. 5. Continue pain management. 6. Continue antiemetics. 7. Continue DVT prophylaxis. 8. Monitor electrolytes and correct as needed. TID: [id number] RECEIPT: [id number]
--- NOTE | 2025-06-05 10:10 | PN ---
[facility] PROGRESS NOTE Date of Service: Jun 05, 2025 Time of Service: 10:07 SUBJECTIVE: [The patient is a 25-year-old male with a history of osteosarcoma of the left leg, status post rotationplasty, who presented to the ED last night with complaints of abdominal pain primarily in the epigastric region, which began earlier in the day. He describes the pain as diffuse and associated with mild shortness of breath, chills, and nausea, but denies vomiting. He reports having experienced similar abdominal discomfort in the past, but notes that todays pain is more generalized and severe. He also endorses fever and body aches. He denies chest pain, palpitations, cough, or true shortness of breath. No dysuria, hematuria, or urinary frequency. No recent changes in bowel habits, vomiting, or GI bleeding. No headache, dizziness, or focal neurological symptoms at the time of presentation. Since admission, the patient reports that his abdominal pain and nausea have improved with supportive care and medications. He is currently afebrile but now complains of a mild headache. He denies any new symptoms, including chest pain, dyspnea, palpitations, dysuria, hematuria, or rashes. He continues to deny any visual changes, weakness, or sensory deficits. No new GI or urinary complaints. He is tolerating clear liquids. ] 06/05/2025 patient was evaluated in the room, patient has no complaints. He is afebrile today. We are still pending his blood cultures. He was already been seen by Infectious Disease specialist for which he has change IV antibiotics to cefepime and Zyvox. Apparently patient had reaction to vancomycin. Labs reviewed. REVIEW OF SYSTEMS CONSTITUTIONAL: Positive fever and chills Denies night sweats. No unintentional weight loss reported. NEUROLOGICAL: Denies headache, amaurosis fugax, motor weakness, sensory deficit, vertigo/spinning sensation, gait abnormalities, or tremors. ENT: No hearing loss, otalgia, otorrhea, rhinitis, rhinorrhea, hoarseness, or sore throat. CARDIOVASCULAR: Denies any exertional angina, dyspnea on exertion, orthopnea, paroxysmal nocturnal dyspnea, palpitations, life-threatening arrhythmias, claudication. PULMONARY: Denies any shortness of breath, cough, phlegm/sputum, hemoptysis, pleuritic chest pain. SLEEP: Denies morning headaches, daytime somnolence or napping. Denies difficulty falling asleep, staying asleep, waking from sleep. Denies knowledge of snoring. GASTROINTESTINAL: Complain of abdominal pain nausea Denies any type of dysphagia to either liquids or solids. Denies vomiting, pyrosis, early satiety, diarrhea, constipation, or changes in stool consistency or caliber. Denies coffee-ground emesis, hematemesis, hematochezia, or melanotic stools. GENITOURINARY: Denies frequency, urgency, nocturia, hematuria or incontinence (Storage/Irritative symptoms.) Low urinary stream, straining to void, urinary intermittency or hesitancy, splitting of the voiding stream, terminal dribbling. ENDOCRINOLOGIC: Denies polyuria, polydipsia, polyphagia or heat/cold intolerances. HEMATOLOGIC: Denies thrombophilia/previous clots, or coagulopathy/bleeding disorders. ONCOLOGIC: Denies personal history of malignancy. DERMATOLOGIC: Denies rashes or pruritus. PSYCHIATRIC: Denies any suicidal or homicidal ideation. Denies hallucinations. PHYSICAL EXAM GENERAL APPEARANCE: The patient is awake, alert, and oriented, in no acute cardiopulmonary distress. NEUROLOGICAL: Cranial nerves II-XII grossly intact. Motor is 5/5 in bilateral upper and lower extremities proximal to distal. No sensory deficits. HEENT: Face is symmetric. Pupils are equal and reactive. Extraocular movements are intact. NECK: Supple. No JVD. No thyromegaly. No submental, submandibular, pre- /postauricular, occipital or supraclavicular lymphadenopathy. CHEST: Normal chest expansion. No Telemetry. LUNGS: Absence of any rales, rhonchi or any wheezing. CARDIOVASCULAR: Regular. S1 and S2 normal. No appreciable rubs, murmurs or gallops. ABDOMEN: Soft, nontender, and nondistended. There is no rebound, voluntary guarding, or rigidity. : Deferred. No [place]. EXTREMITIES: Non-edematous and not cyanotic. No clubbing. Good capillary refill. SKIN: No skin breakdown. Vital Signs (last 8hr) Date Time Temp Pulse Resp B/P (MAP) Pulse Ox O2 Delivery O2 Flow Rate FiO2 06/05/25 08:00 98 Room Air* 0 21 06/05/25 08:00 97.5 80 18 92/54 98 Room Air 21 06/05/25 04:00 97.9 84 16 104/61 98 Room Air LABS: Laboratory: Test 06/05/25 05:48 06/04/25 05:59 06/03/25 20:38 06/03/25 18:57 Range/Units White Blood Count 11.2 H 4.8-10.8 K/uL Red Blood Count 4.60 4.50-6.20 MIL/uL Hemoglobin 13.9 L 14.0-18.0 g/dL Hematocrit 41.1 L 42-54 % Mean Corpuscular Volume 89.3 79-99 fL Mean Corpuscular Hemoglobin 30.2 27.0-33.0 pg Mean Corpuscular Hemoglobin Concent 33.8 32.0-36.0 g/dL Red Cell Distribution Width 11.9 11.0-15.5 % Platelet Count 215 130-400 K/uL Mean Platelet Volume 11.1 H 7.5-10.5 fL Nucleated Red Blood Cells 0.0 0.0-0.19 % Sodium Level 136 136-145 mmol/L Potassium Level 4.0 3.5-5.1 mmol/L Chloride Level 100 L 101-111 mmol/L Carbon Dioxide Level 29 21-32 mmol/L Blood Urea Nitrogen 9 7-18 mg/dL Creatinine 0.7 0.5-1.3 mg/dL Glomerular Filtration Rate Calc 133 >90 mL/min Random Glucose 122 H 70-105 mg/dL Total Calcium 8.6 8.5-10.1 mg/dL Magnesium Level 1.90 1.80-2.40 mg/dL Total Bilirubin 0.6 # 0.2-1.0 mg/dL Direct Bilirubin 0.1 0.0-0.3 mg/dL Aspartate Amino Transf (AST/SGOT) 59 H 10-37 U/L Alanine Aminotransferase (ALT/SGPT) 79 #H 12-78 U/L Alkaline Phosphatase 94 50-136 U/L Total Protein 7.0 6.0-8.3 g/dL Albumin 3.4 L 3.5-5.0 g/dL Procalcitonin < 0.05 L 0.05-0.5 ng/mL Immature Granulocyte % (Auto) 0.6 0-1 % Neutrophils (%) (Auto) 80.2 H 40.0-77.0 % Lymphocytes (%) (Auto) 11.1 L 21.0-51.0 % Monocytes (%) (Auto) 7.9 3.0-13.0 % Eosinophils (%) (Auto) 0.1 0.0-8.0 % Basophils (%) (Auto) 0.1 0.0-5.0 % Neutrophils # (Auto) 10.8 H 1.8-7.7 K/uL Lymphocytes # (Auto) 1.5 1.0-4.8 K/uL Monocytes # (Auto) 1.1 H 0.1-1.0 K/uL Eosinophils # (Auto) 0.01 0.00-0.70 K/uL Basophils # (Auto) 0.02 0.00-0.20 K/uL Absolute Immature Granulocyte (auto 0.08 0-1 K/uL Erythrocyte Sedimentation Rate 5 0-15 MM/HR Lactic Acid Level 1.3 0.8-2.5 mmol/L Lipase 62 16-77 U/L Urine Color LIGHT-YELLOW YELLOW Urine Appearance CLEAR CLEAR Urine pH 7.5 5.0-8.0 Urine Specific [place] 1.024 1.001-1.031 Urine Protein NEGATIVE NEGATIVE mg/dL Urine Glucose (UA) NEGATIVE NEGATIVE mg/dL Urine Ketones NEGATIVE NEGATIVE mg/dL Urine Occult Blood NEGATIVE NEGATIVE Urine Nitrate NEGATIVE NEGATIVE Urine Bilirubin NEGATIVE NEGATIVE mg/dL Urine Urobilinogen 0.2 0.2-1.0 mg/dL Urine Leukocyte Esterase NEGATIVE NEGATIVE Leila/uL Urine Opiates Screen NEGATIVE NEGATIVE Urine Barbiturates Screen NEGATIVE NEGATIVE Urine Phencyclidine Screen NEGATIVE NEGATIVE Urine Amphetamines Screen NEGATIVE NEGATIVE Urine Benzodiazepines Screen NEGATIVE NEGATIVE Urine Cocaine Screen NEGATIVE NEGATIVE Urine Marijuana (THC) Screen NEGATIVE NEGATIVE White Cell Morphology Comment See comments Total Creatine Kinase 84 # 21-232 U/L Troponin I High Sensitivity < 4 L 4-75 ng/L Current Medications Medications (Trade) Dose Ordered Sig/[place] Route PRN Reason Start Time Stop Time Status Last Admin Dose Admin Acetaminophen (TYLenol 325MG TAB) 650 mg Q4H PRN PO MILD PAIN (1-3) 06/03/25 22:30 07/03/25 22:29 Acetaminophen (TYLenol 325MG TAB) 650 mg Q6H PRN PO TEMPERATURE GREATER THAN 101.5 06/03/25 22:30 07/03/25 22:29 Cefepime HCl (MAXipime 1 GM vial) 1 gm Q8H IVPB 06/03/25 22:30 06/13/25 22:29 06/05/25 05:31 1 GM Doxycycline Hyclate 250 ml @ 125 mls/hr Q12H IV 06/04/25 17:30 06/04/25 18:00 DC Linezolid (Zyvox) 600 mg Q12H PO 06/04/25 18:00 06/14/25 17:59 06/05/25 05:31 600 MG Magnesium Sulfate 50 ml @ 0 mls/hr PROTOCOL IV 06/04/25 10:30 07/04/25 10:29 Magnesium Sulfate 50 ml @ 0 mls/hr PROTOCOL IV 06/04/25 13:30 06/04/25 13:26 DC Ondansetron HCl (zoFRAN 4MG INJ) 4 mg Q6H PRN IV NAUSEA/VOMITING 06/03/25 22:30 07/03/25 22:29 Pantoprazole Sodium (PROTonix 40MG INJ) 40 mg DAILY IVP 06/04/25 09:00 07/04/25 08:59 06/05/25 09:05 40 MG Potassium Chloride 100 ml @ 100 mls/hr AD PRN IV POTASSIUM PROTOCOL 06/04/25 19:00 07/04/25 18:59 Potassium Chloride (K-Dur/Klor-Con 20meq) 20 meq AD PRN PO POTASSIUM PROTOCOL 06/04/25 19:00 07/04/25 18:59 Potassium Chloride (KCl 10% Elixir 20meq/15ml) 20 meq AD PRN PO POTASSIUM PROTOCOL 06/04/25 19:00 07/04/25 18:59 Sodium Chloride 1,000 ml @ 100 mls/hr Q10H IV 06/03/25 22:30 07/03/25 22:29 06/05/25 03:49 100 MLS/HR Vancomycin HCl 250 ml @ 125 mls/hr Q8H IV 06/04/25 23:00 06/04/25 17:32 DC Vancomycin HCl (Vancomycin Protocol) 1 each AD IV 06/04/25 14:00 06/04/25 17:42 DC DIAGNOSTICS / RADIOLOGY: [ ] ASSESSMENT: Sepsis/SIRS with suspected urinary source (cystitis), POA Fever, tachycardia, leukocytosis, hypotension, and CT evidence of cystitis. Acute cystitis CT findings consistent with cystitis; currently on empiric IV antibiotics. Leukocytosis WBC 16.3 K/uL, neutrophil predominant. Mildly elevated lipase Lipase 102 U/L (asymptomatic, no imaging evidence of pancreatitis). Nonobstructive left renal calculus Incidental finding on CT, no current obstruction or symptoms. Hepatic steatosis Incidental finding on CT, no acute management required. Headache New symptom since admission, currently mild. PLAN: 1. Sepsis/SIRS with suspected urinary source (cystitis) Continue empiric IV antibiotics: Cefepime 1g IV q8h and Zyvox per ID Monitor for clinical response and adjust antibiotics per culture and sensitivity results Appreciate ID recommendation Monitor vital signs closely for hemodynamic stability Monitor for signs of clinical deterioration or organ dysfunction We will follow Culture results 2. Acute cystitis Continue IV antibiotics as above Monitor for urinary symptoms or changes in urinalysis Encourage oral hydration as tolerated 3. Leukocytosis Monitor CBC daily Trend WBC in response to therapy 4. Mildly elevated lipase Monitor for development of abdominal pain or signs of pancreatitis No specific intervention at this time; repeat lipase if clinically indicated 5. Nonobstructive left renal calculus No acute intervention required Monitor for development of renal colic, hematuria, or urinary obstruction 6. 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 Headache Monitor symptom progression Provide PRN analgesia Reassess for new or worsening neurological symptoms 8. Supportive Care Continue IV fluids: NS at 100 mL/hr x2 bags, then reassess GI prophylaxis: Protonix 40 mg IV daily PRN medications for fever, pain, nausea, vomiting, and cough Advance diet as tolerated (currently on clear liquids) Replace electrolytes as needed per protocol 9. Monitoring Daily labs: CBC, BMP, LFTs, as indicated Monitor blood cultures and other relevant microbiology results Reassess clinical status at least daily 10. Patient Education and Advanced Care Planning Continue to discuss therapeutic options and goals of care as appropriate Case discussed with Dr. Ivy, above plan was formulated ATTESTATION BY PHYSICIAN I have seen and examined the patient. I reviewed the documentation, medical decision making, and treatment plan as noted by the mid-level provider above. I agree with the findings and plan of care. JERSON IVY MD, JANICE B AGACNP Jun 05, 2025 10:10
--- NOTE | 2025-06-05 17:05 | PN ---
INFECTIOUS DISEASE PROGRESS NOTE Date of Service: Jun 05, 2025 SUBJECTIVE: This is a 25-year-old male patient admitted for abdominal pain and nausea. On admission patient had a WBC of 16.3 and fever of 100.8. A UA was negative, a CT of the abdomen and pelvis however showed cystitis and left renal calculus, nonobstructive. A chest x-ray was negative for infiltrates. No growth reported on the blood cultures in 24 hours. Per report patient developed itching and redness during initial dose of vancomycin last night and was switched to linezolid. Patient is also on cefepime. No fever this morning, temperature is 97.5. We will continue to follow patient's care. PHYSICAL EXAM EYES: Anicteric. Pupils equal and reactive. HENT: No oral thrush seen, moist Oral mucosa. NECK: Supple, no JVD or thyromegaly. LUNGS: Good air entry. No rales, no rhonchi. CARDIOVASCULAR: S1, S2 regular. No murmur heard. ABDOMEN: Soft, non tender, bowel sounds present. Abdominal pain, POA. CENTRAL NERVOUS SYSTEM: Awake, alert, oriented x 3. SKIN: No rashes, no swelling. LYMPHATICS: No peripheral lymphadenopathy. MUSCULOSKELETAL: No joint swelling, erythema or tenderness. EXTREMITIES: No cyanosis or clubbing. Left leg rotationplasty. BACK: No deformity, no pressure ulcer. GENITOURINARY: No dysuria or hematuria. Vital Sign (Last 12 Hours) 06/05/25 06/05/25 06/05/25 06/05/25 08:00 08:00 11:44 16:00 Temp 97.5 97.7 98.1 Pulse 80 68 77 Resp 18 18 18 B/P (MAP) 92/54 107/64 109/56 Pulse Ox 98 98 100 98 O2 Delivery Room Air Room Air* Room Air Room Air O2 Flow Rate 0 FiO2 21 21 21 21 Intake & Output (last 24hrs) 06/04/25 06/04/25 06/05/25 15:00 23:00 07:00 Output Total 850 ml Balance -850 ml LABS: Laboratory: Test 06/05/25 05:48 06/04/25 05:59 06/03/25 20:38 06/03/25 18:57 Range/Units White Blood Count 11.2 H 4.8-10.8 K/uL Red Blood Count 4.60 4.50-6.20 MIL/uL Hemoglobin 13.9 L 14.0-18.0 g/dL Hematocrit 41.1 L 42-54 % Mean Corpuscular Volume 89.3 79-99 fL Mean Corpuscular Hemoglobin 30.2 27.0-33.0 pg Mean Corpuscular Hemoglobin Concent 33.8 32.0-36.0 g/dL Red Cell Distribution Width 11.9 11.0-15.5 % Platelet Count 215 130-400 K/uL Mean Platelet Volume 11.1 H 7.5-10.5 fL Nucleated Red Blood Cells 0.0 0.0-0.19 % Sodium Level 136 136-145 mmol/L Potassium Level 4.0 3.5-5.1 mmol/L Chloride Level 100 L 101-111 mmol/L Carbon Dioxide Level 29 21-32 mmol/L Blood Urea Nitrogen 9 7-18 mg/dL Creatinine 0.7 0.5-1.3 mg/dL Glomerular Filtration Rate Calc 133 >90 mL/min Random Glucose 122 H 70-105 mg/dL Total Calcium 8.6 8.5-10.1 mg/dL Magnesium Level 1.90 1.80-2.40 mg/dL Total Bilirubin 0.6 # 0.2-1.0 mg/dL Direct Bilirubin 0.1 0.0-0.3 mg/dL Aspartate Amino Transf (AST/SGOT) 59 H 10-37 U/L Alanine Aminotransferase (ALT/SGPT) 79 #H 12-78 U/L Alkaline Phosphatase 94 50-136 U/L Total Protein 7.0 6.0-8.3 g/dL Albumin 3.4 L 3.5-5.0 g/dL Procalcitonin < 0.05 L 0.05-0.5 ng/mL Immature Granulocyte % (Auto) 0.6 0-1 % Neutrophils (%) (Auto) 80.2 H 40.0-77.0 % Lymphocytes (%) (Auto) 11.1 L 21.0-51.0 % Monocytes (%) (Auto) 7.9 3.0-13.0 % Eosinophils (%) (Auto) 0.1 0.0-8.0 % Basophils (%) (Auto) 0.1 0.0-5.0 % Neutrophils # (Auto) 10.8 H 1.8-7.7 K/uL Lymphocytes # (Auto) 1.5 1.0-4.8 K/uL Monocytes # (Auto) 1.1 H 0.1-1.0 K/uL Eosinophils # (Auto) 0.01 0.00-0.70 K/uL Basophils # (Auto) 0.02 0.00-0.20 K/uL Absolute Immature Granulocyte (auto 0.08 0-1 K/uL Erythrocyte Sedimentation Rate 5 0-15 MM/HR Lactic Acid Level 1.3 0.8-2.5 mmol/L Lipase 62 16-77 U/L Urine Color LIGHT-YELLOW YELLOW Urine Appearance CLEAR CLEAR Urine pH 7.5 5.0-8.0 Urine Specific [place] 1.024 1.001-1.031 Urine Protein NEGATIVE NEGATIVE mg/dL Urine Glucose (UA) NEGATIVE NEGATIVE mg/dL Urine Ketones NEGATIVE NEGATIVE mg/dL Urine Occult Blood NEGATIVE NEGATIVE Urine Nitrate NEGATIVE NEGATIVE Urine Bilirubin NEGATIVE NEGATIVE mg/dL Urine Urobilinogen 0.2 0.2-1.0 mg/dL Urine Leukocyte Esterase NEGATIVE NEGATIVE Leila/uL Urine Opiates Screen NEGATIVE NEGATIVE Urine Barbiturates Screen NEGATIVE NEGATIVE Urine Phencyclidine Screen NEGATIVE NEGATIVE Urine Amphetamines Screen NEGATIVE NEGATIVE Urine Benzodiazepines Screen NEGATIVE NEGATIVE Urine Cocaine Screen NEGATIVE NEGATIVE Urine Marijuana (THC) Screen NEGATIVE NEGATIVE White Cell Morphology Comment See comments Total Creatine Kinase 84 # 21-232 U/L Troponin I High Sensitivity < 4 L 4-75 ng/L ASSESSMENT: Abdominal pain, POA. Sepsis. Cystitis. Leukocytosis. Left nephrolithiasis, nonobstructive. History of osteosarcoma with left leg rotationplasty. PLAN: Continue linezolid. Continue cefepime. Continue GI prophylaxis. Continue pain management. Continue antiemetics. This case was reviewed and discussed with my supervising physician Dr. Ruiz and the above assessment and plan was formulated and agreed upon. ATTESTATION BY PHYSICIAN I have seen and examined the patient. I reviewed the documentation, medical decision making, and treatment plan as noted by the mid-level provider above. I agree with the findings and plan of care. CAROLINA RUIZ MD, [facility] Jun 05, 2025 17:05
[2025-06-06] VITALS: BP 98/60; PULSE 84; RESP 18; TEMP 98.1
[2025-06-06 04:55] VITALS: BP 93/52; PULSE 75; RESP 16; TEMP 97.5
[2025-06-06 07:54] LABS: NUCLEATED RED BLOOD CELLS 0.0 % (0.0-0.19); PLATELET COUNT (AUTO) 198.0 K/uL (130-400); RED BLOOD CELL COUNT(AUTO) 4.2 MIL/uL (4.50-6.20); RED CELL DISTRIBUTION WIDTH 12.3 % (11.0-15.5); WHITE BLOOD COUNT (AUTO) 9.0 K/uL (4.8-10.8)
[2025-06-06 07:56] VITALS: BP 94/52; PULSE 88; RESP 16; TEMP 97.4
[2025-06-06 08:12] LABS: ASPARTATE AMINOTRANSFERASE 44.0 U/L (10-37); CREATININE 0.7 mg/dL (0.5-1.3); GLOMERULAR FILTR. RATE CALC 133.0 mL/min (>90); GLUCOSE,RANDOM 94.0 mg/dL (70-105); SODIUM SERUM 138.0 mmol/L (136-145); TOTAL PROTEIN, SERUM 6.2 g/dL (6.0-8.3); UREA NITROGEN, BLOOD 11.0 mg/dL (7-18)
[2025-06-06 10:10] VITALS: O2SAT 98
--- NOTE | 2025-06-06 10:26 | PN ---
[facility] PROGRESS NOTE Date of Service: Jun 06, 2025 Time of Service: 10:22 SUBJECTIVE: [The patient is a 25-year-old male with a history of osteosarcoma of the left leg, status post rotationplasty, who presented to the ED last night with complaints of abdominal pain primarily in the epigastric region, which began earlier in the day. He describes the pain as diffuse and associated with mild shortness of breath, chills, and nausea, but denies vomiting. He reports having experienced similar abdominal discomfort in the past, but notes that todays pain is more generalized and severe. He also endorses fever and body aches. He denies chest pain, palpitations, cough, or true shortness of breath. No dysuria, hematuria, or urinary frequency. No recent changes in bowel habits, vomiting, or GI bleeding. No headache, dizziness, or focal neurological symptoms at the time of presentation. Since admission, the patient reports that his abdominal pain and nausea have improved with supportive care and medications. He is currently afebrile but now complains of a mild headache. He denies any new symptoms, including chest pain, dyspnea, palpitations, dysuria, hematuria, or rashes. He continues to deny any visual changes, weakness, or sensory deficits. No new GI or urinary complaints. He is tolerating clear liquids. ] 06/05/2025 patient was evaluated in the room, patient has no complaints. He is afebrile today. We are still pending his blood cultures. He was already been seen by Infectious Disease specialist for which he has change IV antibiotics to cefepime and Zyvox. Apparently patient had reaction to vancomycin. Labs reviewed. 06/06/25 patient was evaluated in the room. He is accompanied by his mother at bedside. So far no fever reported overnight. Blood cultures still pending times 48 hours so far no growth. Patient will continue with IV currently on Maxipime 1 g and Zyvox 600 mg q.12 hours by mouth. We will await for further recommendations from Infectious Disease. REVIEW OF SYSTEMS CONSTITUTIONAL: Positive fever and chills Denies night sweats. No unintentional weight loss reported. NEUROLOGICAL: Denies headache, amaurosis fugax, motor weakness, sensory deficit, vertigo/spinning sensation, gait abnormalities, or tremors. ENT: No hearing loss, otalgia, otorrhea, rhinitis, rhinorrhea, hoarseness, or sore throat. CARDIOVASCULAR: Denies any exertional angina, dyspnea on exertion, orthopnea, paroxysmal nocturnal dyspnea, palpitations, life-threatening arrhythmias, claudication. PULMONARY: Denies any shortness of breath, cough, phlegm/sputum, hemoptysis, pleuritic chest pain. SLEEP: Denies morning headaches, daytime somnolence or napping. Denies difficulty falling asleep, staying asleep, waking from sleep. Denies knowledge of snoring. GASTROINTESTINAL: Complain of abdominal pain nausea Denies any type of dysphagia to either liquids or solids. Denies vomiting, pyrosis, early satiety, diarrhea, constipation, or changes in stool consistency or caliber. Denies coffee-ground emesis, hematemesis, hematochezia, or melanotic stools. GENITOURINARY: Denies frequency, urgency, nocturia, hematuria or incontinence (Storage/Irritative symptoms.) Low urinary stream, straining to void, urinary intermittency or hesitancy, splitting of the voiding stream, terminal dribbling. ENDOCRINOLOGIC: Denies polyuria, polydipsia, polyphagia or heat/cold intolerances. HEMATOLOGIC: Denies thrombophilia/previous clots, or coagulopathy/bleeding disorders. ONCOLOGIC: Denies personal history of malignancy. DERMATOLOGIC: Denies rashes or pruritus. PSYCHIATRIC: Denies any suicidal or homicidal ideation. Denies hallucinations. PHYSICAL EXAM GENERAL APPEARANCE: The patient is awake, alert, and oriented, in no acute cardiopulmonary distress. NEUROLOGICAL: Cranial nerves II-XII grossly intact. Motor is 5/5 in bilateral upper and lower extremities proximal to distal. No sensory deficits. HEENT: Face is symmetric. Pupils are equal and reactive. Extraocular movements are intact. NECK: Supple. No JVD. No thyromegaly. No submental, submandibular, pre- /postauricular, occipital or supraclavicular lymphadenopathy. CHEST: Normal chest expansion. No Telemetry. LUNGS: Absence of any rales, rhonchi or any wheezing. CARDIOVASCULAR: Regular. S1 and S2 normal. No appreciable rubs, murmurs or gallops. ABDOMEN: Soft, nontender, and nondistended. There is no rebound, voluntary guarding, or rigidity. : Deferred. No [place]. EXTREMITIES: Non-edematous and not cyanotic. No clubbing. Good capillary refill. SKIN: No skin breakdown. Vital Signs (last 8hr) Date Time Temp Pulse Resp B/P (MAP) Pulse Ox O2 Delivery O2 Flow Rate FiO2 06/06/25 10:10 98 Room Air* 0 21 06/06/25 07:56 97.3 88 16 94/52 98 Room Air 06/06/25 04:55 97.5 75 16 93/52 98 Room Air LABS: Laboratory: Test 06/06/25 07:50 06/05/25 05:48 Range/Units White Blood Count 9.0 4.8-10.8 K/uL Red Blood Count 4.20 L 4.50-6.20 MIL/uL Hemoglobin 12.8 L 14.0-18.0 g/dL Hematocrit 38.1 L 42-54 % Mean Corpuscular Volume 90.7 79-99 fL Mean Corpuscular Hemoglobin 30.5 27.0-33.0 pg Mean Corpuscular Hemoglobin Concent 33.6 32.0-36.0 g/dL Red Cell Distribution Width 12.3 11.0-15.5 % Platelet Count 198 130-400 K/uL Mean Platelet Volume 11.1 H 7.5-10.5 fL Nucleated Red Blood Cells 0.0 0.0-0.19 % Sodium Level 138 136-145 mmol/L Potassium Level 3.7 3.5-5.1 mmol/L Chloride Level 103 101-111 mmol/L Carbon Dioxide Level 30 21-32 mmol/L Blood Urea Nitrogen 11 7-18 mg/dL Creatinine 0.7 0.5-1.3 mg/dL Glomerular Filtration Rate Calc 133 >90 mL/min Random Glucose 94 70-105 mg/dL Total Calcium 8.2 L 8.5-10.1 mg/dL Magnesium Level 1.80 1.80-2.40 mg/dL Total Bilirubin 0.8 0.2-1.0 mg/dL Aspartate Amino Transf (AST/SGOT) 44 H 10-37 U/L Alanine Aminotransferase (ALT/SGPT) 68 12-78 U/L Alkaline Phosphatase 76 50-136 U/L Total Protein 6.2 6.0-8.3 g/dL Albumin 3.0 L 3.5-5.0 g/dL Direct Bilirubin 0.1 0.0-0.3 mg/dL Procalcitonin < 0.05 L 0.05-0.5 ng/mL Current Medications Medications (Trade) Dose Ordered Sig/Selwyn Route PRN Reason Start Time Stop Time Status Last Admin Dose Admin Acetaminophen (TYLenol 325MG TAB) 650 mg Q4H PRN PO MILD PAIN (1-3) 06/03/25 22:30 07/03/25 22:29 Acetaminophen (TYLenol 325MG TAB) 650 mg Q6H PRN PO TEMPERATURE GREATER THAN 101.5 06/03/25 22:30 07/03/25 22:29 Cefepime HCl (MAXipime 1 GM vial) 1 gm Q8H IVPB 06/03/25 22:30 06/13/25 22:29 06/06/25 05:28 1 GM Doxycycline Hyclate 250 ml @ 125 mls/hr Q12H IV 06/04/25 17:30 06/04/25 18:00 DC Linezolid (Zyvox) 600 mg Q12H PO 06/04/25 18:00 06/14/25 17:59 06/06/25 05:28 600 MG Magnesium Sulfate 50 ml @ 0 mls/hr PROTOCOL IV 06/04/25 10:30 07/04/25 10:29 Magnesium Sulfate 50 ml @ 0 mls/hr PROTOCOL IV 06/04/25 13:30 06/04/25 13:26 DC Ondansetron HCl (zoFRAN 4MG INJ) 4 mg Q6H PRN IV NAUSEA/VOMITING 06/03/25 22:30 07/03/25 22:29 Pantoprazole Sodium (PROTonix 40MG INJ) 40 mg DAILY IVP 06/04/25 09:00 07/04/25 08:59 06/06/25 09:00 40 MG Potassium Chloride 100 ml @ 100 mls/hr AD PRN IV POTASSIUM PROTOCOL 06/04/25 19:00 07/04/25 18:59 Potassium Chloride (K-Dur/Klor-Con 20meq) 20 meq AD PRN PO POTASSIUM PROTOCOL 06/04/25 19:00 07/04/25 18:59 Potassium Chloride (KCl 10% Elixir 20meq/15ml) 20 meq AD PRN PO POTASSIUM PROTOCOL 06/04/25 19:00 07/04/25 18:59 Sodium Chloride 1,000 ml @ 100 mls/hr Q10H IV 06/03/25 22:30 07/03/25 22:29 06/06/25 01:07 100 MLS/HR Vancomycin HCl 250 ml @ 125 mls/hr Q8H IV 06/04/25 23:00 06/04/25 17:32 DC Vancomycin HCl (Vancomycin Protocol) 1 each AD IV 06/04/25 14:00 06/04/25 17:42 DC DIAGNOSTICS / RADIOLOGY: [ ] ASSESSMENT: Sepsis/SIRS with suspected urinary source (cystitis), POA Fever, tachycardia, leukocytosis, hypotension, and CT evidence of cystitis. Acute cystitis CT findings consistent with cystitis; currently on empiric IV antibiotics. Leukocytosis, improving WBC 16.3 K/uL, neutrophil predominant. Now downtrending Mildly elevated lipase Lipase 102 U/L (asymptomatic, no imaging evidence of pancreatitis). Nonobstructive left renal calculus Incidental finding on CT, no current obstruction or symptoms. Hepatic steatosis Incidental finding on CT, no acute management required. Headache New symptom since admission, currently mild. PLAN: 1. Sepsis/SIRS with suspected urinary source (cystitis) Continue empiric IV antibiotics: Cefepime 1g IV q8h and Zyvox PO per ID Monitor for clinical response and adjust antibiotics per culture and sensitivity results Appreciate ID recommendation Monitor vital signs closely for hemodynamic stability Monitor for signs of clinical deterioration or organ dysfunction We will follow Culture results 2. Acute cystitis Continue IV antibiotics as above Monitor for urinary symptoms or changes in urinalysis Encourage oral hydration as tolerated 3. Leukocytosis, resolved Monitor CBC daily Trend WBC in response to therapy 4. Mildly elevated lipase Monitor for development of abdominal pain or signs of pancreatitis No specific intervention at this time; repeat lipase if clinically indicated 5. Nonobstructive left renal calculus No acute intervention required Monitor for development of renal colic, hematuria, or urinary obstruction 6. Hepatic steatosis No acute intervention required Health Information Technician on lifestyle modification as appropriate after acute issues resolved 7. Headache Monitor symptom progression Provide PRN analgesia Reassess for new or worsening neurological symptoms 8. Supportive Care Continue IV fluids: NS at 100 mL/hr x2 bags, then reassess GI prophylaxis: Protonix 40 mg IV daily PRN medications for fever, pain, nausea, vomiting, and cough Advance diet as tolerated (currently on clear liquids) Replace electrolytes as needed per protocol 9. Monitoring Daily labs: CBC, BMP, LFTs, as indicated Monitor blood cultures and other relevant microbiology results Reassess clinical status at least daily 10. Patient Education and Advanced Care Planning Continue to discuss therapeutic options and goals of care as appropriate Case discussed with Dr. Ivy, above plan was formulated ATTESTATION BY PHYSICIAN I have seen and examined the patient. I reviewed the documentation, medical decision making, and treatment plan as noted by the mid-level provider above. I agree with the findings and plan of care. JERSON IVY MD, [facility] Jun 06, 2025 10:26
[2025-06-06 12:00] VITALS: BP 102/66; PULSE 85; RESP 16; TEMP 97.8
--- NOTE | 2025-06-06 13:06 | PN ---
INFECTIOUS DISEASE PROGRESS NOTE Date of Service: Jun 06, 2025 SUBJECTIVE: This 25-year-old outpatient PT awake, alert and oriented x3. WBC of 9 was noted at this morning. Patient is afebrile. Denies chest pain or palpitations. He is in no respiratory distress denies any acute pain at this time. Blood cultures continue to be negative after48 hours. No acute events reported overnight by nurse. PHYSICAL EXAM EYES: Anicteric. Pupils equal and reactive. HENT: No oral thrush seen, moist Oral mucosa. NECK: Supple, no JVD or thyromegaly. LUNGS: Good air entry. No rales, no rhonchi. CARDIOVASCULAR: S1, S2 regular. No murmur heard. ABDOMEN: Soft, non tender, bowel sounds present. Abdominal pain, POA. CENTRAL NERVOUS SYSTEM: Awake, alert, oriented x 3. SKIN: No rashes, no swelling. LYMPHATICS: No peripheral lymphadenopathy. MUSCULOSKELETAL: No joint swelling, erythema or tenderness. EXTREMITIES: No cyanosis or clubbing. Left leg rotationplasty. BACK: No deformity, no pressure ulcer. GENITOURINARY: No dysuria or hematuria. Vital Sign (Last 12 Hours) 06/06/25 06/06/25 06/06/25 06/06/25 04:55 07:56 10:10 12:00 Temp 97.5 97.3 97.9 Pulse 75 88 85 Resp 16 16 16 B/P (MAP) 93/52 94/52 102/66 Pulse Ox 98 98 98 97 O2 Delivery Room Air Room Air Room Air* Room Air O2 Flow Rate 0 FiO2 21 Intake & Output (last 24hrs) 06/05/25 06/05/25 06/06/25 15:00 23:00 07:00 Intake Total 1800 ml 300 ml Output Total 150 ml 1025 ml Balance 1650 ml -725 ml LABS: Laboratory: Test 06/06/25 07:50 06/05/25 05:48 Range/Units White Blood Count 9.0 4.8-10.8 K/uL Red Blood Count 4.20 L 4.50-6.20 MIL/uL Hemoglobin 12.8 L 14.0-18.0 g/dL Hematocrit 38.1 L 42-54 % Mean Corpuscular Volume 90.7 79-99 fL Mean Corpuscular Hemoglobin 30.5 27.0-33.0 pg Mean Corpuscular Hemoglobin Concent 33.6 32.0-36.0 g/dL Red Cell Distribution Width 12.3 11.0-15.5 % Platelet Count 198 130-400 K/uL Mean Platelet Volume 11.1 H 7.5-10.5 fL Nucleated Red Blood Cells 0.0 0.0-0.19 % Sodium Level 138 136-145 mmol/L Potassium Level 3.7 3.5-5.1 mmol/L Chloride Level 103 101-111 mmol/L Carbon Dioxide Level 30 21-32 mmol/L Blood Urea Nitrogen 11 7-18 mg/dL Creatinine 0.7 0.5-1.3 mg/dL Glomerular Filtration Rate Calc 133 >90 mL/min Random Glucose 94 70-105 mg/dL Total Calcium 8.2 L 8.5-10.1 mg/dL Magnesium Level 1.80 1.80-2.40 mg/dL Total Bilirubin 0.8 0.2-1.0 mg/dL Aspartate Amino Transf (AST/SGOT) 44 H 10-37 U/L Alanine Aminotransferase (ALT/SGPT) 68 12-78 U/L Alkaline Phosphatase 76 50-136 U/L Total Protein 6.2 6.0-8.3 g/dL Albumin 3.0 L 3.5-5.0 g/dL Direct Bilirubin 0.1 0.0-0.3 mg/dL Procalcitonin < 0.05 L 0.05-0.5 ng/mL ASSESSMENT: Abdominal pain, POA. Sepsis. Cystitis. Leukocytosis, improved Left nephrolithiasis, nonobstructive. History of osteosarcoma with left leg rotationplasty. PLAN: Continue linezolid. Continue cefepime. Continue GI prophylaxis. Continue pain management. Continue antiemetics. This case was reviewed and discussed with my supervising physician Dr. Feliz and the above assessment and plan was formulated and agreed upon. CHARLY EASTMAN Jun 06, 2025 13:05
[2025-06-06] MEDS ORDERED: CEPH500T PO (15:03)
--- NOTE | 2025-06-06 15:19 | DS ---
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 No vomiting, dysuria, or urinary frequency. He reported similar but less severe episodes in the past. Initial Evaluation: On admission, the patient was febrile (Tmax 100.8F), tachycardic (HR 120s), and hypotensive (BP ?100/57). Labs notable for leukocytosis (WBC 16.3 K/uL, neutrophil predominant), mild transaminitis, and mildly elevated lipase (102 U/L). Urinalysis was unremarkable; urine toxicology negative. Imaging: CT abdomen/pelvis showed cystitis and nonobstructive left renal calculus; hepatic steatosis noted. Chest X-ray was unremarkable. Diagnosis: Sepsis/SIRS, likely secondary to acute cystitis (supported by CT findings). Leukocytosis, fever, and hypotension on presentation. Incidental findings: nonobstructive left nephrolithiasis, hepatic steatosis. Mildly elevated lipase without clinical or radiographic evidence of pancreatitis. History of left lower extremity deformity (rotationplasty). Management: Initiated empiric IV antibiotics (cefepime). Infectious Disease consulted; vancomycin was started but discontinued due to allergic reaction (itching, redness). Switched to linezolid (Zyvox) per ID recommendations. Supportive care: IV fluids, GI prophylaxis (pantoprazole), antipyretics, antiemetics, and electrolyte replacement as needed. Monitored for clinical response, organ dysfunction, and culture results. Blood cultures remained negative throughout hospitalization. DVT prophylaxis provided. No evidence of urinary obstruction or acute renal compromise. Clinical Course: The patients abdominal pain, fever, and nausea improved steadily with supportive care and antibiotics. No further fevers after hospital day 2; he remained hemodynamically stable. Leukocytosis resolved (WBC normalized to 9.0 K/uL by 06/06/25). No new or worsening symptoms; no evidence of ongoing infection or complications. Headache developed but remained mild and self-limited. No evidence of cellulitis or wound infection at the rotationplasty site during this admission. Diet advanced as tolerated; patient remained on clear liquids initially, then regular diet as tolerated. No acute events overnight prior to discharge; patient remained afebrile and stable. Discharge Diagnoses Sepsis/SIRS, resolved (presumed urinary source: cystitis) Acute cystitis, resolved Leukocytosis, resolved Nonobstructive left renal calculus (incidental) Hepatic steatosis (incidental) History of osteosarcoma, status post left leg rotationplasty Mildly elevated lipase, resolved Headache, resolved Finance Administrator(s): Dr Feliz- ID Assessment/Plan: Discharge Diagnoses: Sepsis/SIRS with suspected urinary source (cystitis) Acute cystitis Leukocytosis, resolved Mildly elevated lipase (asymptomatic, no imaging evidence of pancreatitis) Nonobstructive left renal calculus (incidental, no obstruction or symptoms) Hepatic steatosis (incidental, no acute management required) Headache (mild, stable, no focal neurological deficits) Admitting diagnosis Sepsis/SIRS, likely secondary to acute cystitis (present on admission): Initial presentation with fever, tachycardia, leukocytosis, hypotension, and CT findings consistent with cystitis. Acute cystitis: CT abdomen/pelvis demonstrated bladder wall changes consistent with cystitis. Patient started on empiric intravenous antibiotics. Leukocytosis, improving: Admission WBC 16.3 K/uL with neutrophil predominance; values are now trending downward with therapy. Mildly elevated lipase: Lipase peaked at 102 U/L; patient remains asymptomatic with no imaging evidence of pancreatitis. Nonobstructive left renal calculus: Incidental finding on CT; no evidence of obstruction or associated symptoms. Hepatic steatosis: Incidental finding on imaging; no acute intervention required. Headache: Mild, new-onset headache since admission; currently stable and not associated with focal neurological deficits. Discharge Instructions: Discharge Plan: Cleared for discharge by Infectious Disease after 48 hours of negative blood cultures and clinical improvement. Discharged on cephalexin 500 mg PO TID for 5 days (per ID recommendation). Advised to follow up with primary care provider in 23 days. Continue supportive care at home, including hydration and monitoring for recurrence of symptoms. Educated on signs/symptoms of infection, renal colic, and when to seek medical attention. Follow-Up Primary care provider in 23 days Return to ED for fever, worsening abdominal pain, dysuria, hematuria, or any new concerning symptoms Physician/Provider: Home Medications: Active Scripts Ibuprofen (Ibuprofen) 600 Mg Tablet, 600 MG PO Q6H PRN for PAIN, #20 TAB Prov:BENNETT BROUSSARD MD 06/28/23 Acetaminophen (Acetaminophen) 500 Mg Tablet, 500 MG PO Q6HPRN PRN for PAIN, #20 TAB Prov:BENNETT BROUSSARD MD 06/28/23 Ondansetron (Ondansetron Odt) 4 Mg Tab.rapdis, 4 MG PO Q6HPRN PRN for nausea, #12 TAB 0 Refills Prov:BENNETT BROUSSARD MD 06/28/23 New Medications: Cephalexin (Cephalexin) 500 Mg Tablet 1 TAB PO TID for 5 Days, #15 TAB 0 Refills Continued Medications: Acetaminophen (Acetaminophen) 500 Mg Tablet 500 MG PO Q6HPRN PRN for PAIN, #20 TAB Ibuprofen (Ibuprofen) 600 Mg Tablet 600 MG PO Q6H PRN for PAIN, #20 TAB Ondansetron (Ondansetron Odt) 4 Mg Tab.rapdis 4 MG PO Q6HPRN PRN for nausea, #12 TAB 0 Refills Time spent arranging discharge: 31-60 minutes ATTESTATION BY PHYSICIAN I have seen and examined the patient. I reviewed the documentation, medical decision making, and treatment plan as noted by the mid-level provider above. I agree with the findings and plan of care. JERSON IVY MD, [facility] Jun 06, 2025 15:19
[2025-06-06 16:00] VITALS: BP 99/62; PULSE 85; RESP 16; TEMP 97.8
--- NOTE | 2025-06-06 17:25 | NUR ---
DISCHARGE PATIENT TAKEN OFF THE FLOOR. PATIENT IV REMOVED AT THIS TIME. THE PATIENT TOLERATED THE PROCEDURE WELL. THE PATIENT WAS TOLD TO MAKE SURE ALL BELONGINGS WERE TAKEN AT THIS TIME. NO DISTRESS NOTED AT THE TIME OF DISCHARGE. THE PATIENT WAS WHEELED OFF THE FLOOR
== END 2025-06-06 17:25 | disposition home or self-care (01) | DRG 872 ==
LOC: EDH 18:07 → EDHIP 18:08 → 1MS 06-04 00:08
PROVIDERS: ADMIT Internal Medicine; ATTEND Internal Medicine
DX: A41.9 Sepsis, unspecified organism (principal); N30.00 Acute cystitis without hematuria; K76.0 Fatty (change of) liver, not elsewhere classified; T36.8X5A Adverse effect of other systemic antibiotics, initial encounter; N20.0 Calculus of kidney; Z82.49 Family history of ischemic heart disease and other diseases of the circulatory system; Z83.3 Family history of diabetes mellitus; Z85.830 Personal history of malignant neoplasm of bone
CPT/HCPCS: 36415; 71045; 74176; 80048; 80053; 80076; 80305; 81003; 82550; 83605; 83690; 83735; 84145; 84484; 85025; 85027; 85651; 87040; 93005; 99285; G0378; J0692; J1200; J2270; J2405; J2470; J2919; J3475; J7030; J3373; J3375